=== PATIENT | male | born 1990 | race Caucasian/White ===

== ENCOUNTER 2024-03-05 12:28 | Emergency (ER) | payer BC, OTHER ==
[2024-03-05 12:47] VITALS: BP 144/75; PULSE 82; RESP 18; TEMP 98.2; BMI 33.4
[2024-03-05] MEDS ORDERED: ACETAMINOPHEN 500 MG TABLET (FP) ONE (13:55)
[2024-03-05] MEDS: ACETAMINOPHEN 500 MG TABLET (FP) PO ONE (13:56)
== END 2024-03-05 17:06 | disposition home or self-care (01) ==
LOC: JERFT 12:28
DX: M79.671 Pain in right foot (principal)
CPT/HCPCS: 73630-TC-RT-FY; 99283-25